=== PATIENT | female | born 1960 | race Caucasian/White ===

== ENCOUNTER 2020-02-08 15:30 | Outpatient (CLI) | payer BC, SELFPAY ==
--- NOTE | 2020-02-08 | XR_ITS ---
WS: [id number] SCREENING DEXA SCAN [employer] CLINICAL INFORMATION: POST MENOPAUSAL COMPARISON: None. FINDINGS: The L1-L4 bone mineral density measures 1.280 g/cm2. This corresponds to a T score score of 0.8 and Z score of 1.4. Left femoral neck bone mineral density measures 0.883 g/cm2. This corresponds to a T score of -1.0 an d Z score of -0.5. Right femoral neck bone mineral density measures 0.826 g/cm2. This corresponds to a T score -1.4of an d Z score of -1.0. Mean femoral neck bone mineral density measures 0.854 g/cm2. This corresponds to a T score of -1.2 an d Z score of -0.8. XR/XR DEXA axial skeleton* [id number] IMPRESSION: Osteopenia in the femoral necks. Patient's FRAX calculated 10 year probability for major osteoporotic fracture i s 15.0 % and osteoporotic hip fracture is 1.6%.
== END 2020-02-08 15:31 | disposition home or self-care (01) ==
LOC: RADWPI 15:38
PROVIDERS: Family Provider Physician Assistant; PCP Physician Assistant; Visit Provider Physician Assistant
DX: Z78.0 Asymptomatic menopausal state (principal); M85.89 Other specified disorders of bone density and structure, multiple sites
CPT/HCPCS: 77080

== ENCOUNTER → 2020-06-09 13:32 | Outpatient (BNVA) | payer BC, SELFPAY | PROVIDERS: Family Provider Physician Assistant; PCP Physician Assistant; Referring Provider Physician Assistant; Visit Provider Podiatrist Foot & Ankle Surgery | DX: M20.40 Other hammer toe(s) (acquired), unspecified foot (principal); M19.071 Primary osteoarthritis, right ankle and foot | CPT/HCPCS: 73630 ==

== ENCOUNTER 2020-06-22 09:41 | Outpatient (CLI) | payer BC, SELFPAY ==
--- NOTE | 2020-06-22 09:50 | MM_ITS ---
WS: [id number] Exam: [place] [id number] Date/Time of Exam: 06/22/2020 9:52 AM Reason For Exam: SCREENING VIEWS: MLO and CC views both breasts. No previous exam Findings: A 14 mm lobulated partially obscured nodule is seen in the upper outer quadrant of the left breast. T here is also a second nodule measuring about a centimeter in greatest diameter noted somewhat more po sterior and slightly superior to the first nodule. The second nodule is seen only on the MLO view. No suspicious calcification or associated architectural distortion. Scattered fibroglandular densities are noted. MM/[place] [id number] Impression: BI-RADS: 0-Incomplete: Need additional imaging evaluation FOLLOW-UP: Complete left breast ultrasound recommended for further workup. Comp ression spot imaging may also be necessary. This mammogram was also analyzed by the Computer Aided Detection System R2 Imag e [employer] Tutor.
== END 2020-06-22 09:42 | disposition home or self-care (01) ==
LOC: RADSHAW 09:45
PROVIDERS: Family Provider Physician Assistant; PCP Physician Assistant; Visit Provider Physician Assistant
DX: Z12.31 Encounter for screening mammogram for malignant neoplasm of breast (principal); N63.21 Unspecified lump in the left breast, upper outer quadrant
CPT/HCPCS: 77067

== ENCOUNTER 2020-08-08 13:54 | Outpatient (CLI) | payer BC, SELFPAY ==
--- NOTE | 2020-08-08 14:00 | MM_ITS ---
WS: [id number] ADDITIONAL VIEWS LEFT MAMMOGRAM LEFT BREAST ULTRASOUND HISTORY: Abnormal Mammo. 14mm lobular nodule upper outer LT breast COMPARISON: 06/22/2020. LEFT MAMMOGRAM: Spot compression views and true ML. Reniform shape masses in the upper outer quadrant of the LEFT breast. Largest measures 13 mm. These c orrespond to the findings on the screening mammogram. LEFT BREAST ULTRASOUND 2-D and color Doppler imaging submitted. Ultrasound directed to the upper-outer quadrant of the LEFT breast. Along the 2:00 axis there is karla form shaped hypoechoic mass identified. The largest 5 cm from the nipple measures 1.0 x 0.4 x 1.3 cm. There is an additional hypoechoic mass at 2:00, 2 cm from the nipple and at 12:00, 2 cm from the nip ple. MM/[place] [id number] IMPRESSION: BI-RADS: 4-Suspicious Finding-Biopsy Should Be Considered FOLLOW UP: Biopsy Recommended Ultrasound-guided biopsy recommended of 3 masses within the LEFT breast. The la rger mass may be a lymph node. Smaller mass at 2:00, 2 cm from the nipple and a t 12:00 2 cm from the nipple cannot be confirmed as lymph nodes. Recommend ultr asound-guided biopsy of all 3 nodules.
--- NOTE | 2020-08-08 14:15 | US_ITS ---
WS: [id number] ADDITIONAL VIEWS LEFT MAMMOGRAM LEFT BREAST ULTRASOUND HISTORY: Abnormal Mammo. 14mm lobular nodule upper outer LT breast COMPARISON: 06/22/2020. LEFT MAMMOGRAM: Spot compression views and true ML. Reniform shape masses in the upper outer quadrant of the LEFT breast. Largest measures 13 mm. These c orrespond to the findings on the screening mammogram. LEFT BREAST ULTRASOUND 2-D and color Doppler imaging submitted. Ultrasound directed to the upper-outer quadrant of the LEFT breast. Along the 2:00 axis there is karla form shaped hypoechoic mass identified. The largest 5 cm from the nipple measures 1.0 x 0.4 x 1.3 cm. There is an additional hypoechoic mass at 2:00, 2 cm from the nipple and at 12:00, 2 cm from the nip ple. US/US breast LT limited* [id number] IMPRESSION: BI-RADS: 4-Suspicious Finding-Biopsy Should Be Considered FOLLOW UP: Biopsy Recommended Ultrasound-guided biopsy recommended of 3 masses within the LEFT breast. The la rger mass may be a lymph node. Smaller mass at 2:00, 2 cm from the nipple and a t 12:00 2 cm from the nipple cannot be confirmed as lymph nodes. Recommend ultr asound-guided biopsy of all 3 nodules.
== END 2020-08-08 13:55 | disposition home or self-care (01) ==
LOC: RADSHAW 13:57
PROVIDERS: PCP Physician Assistant; Visit Provider Family Medicine
DX: N63.21 Unspecified lump in the left breast, upper outer quadrant (principal)
CPT/HCPCS: 76642; 77065

== ENCOUNTER 2020-08-22 12:01 | Outpatient (CLI) | payer BC, SELFPAY ==
--- NOTE | 2020-08-22 12:08 | US_ITS ---
WS: [id number] ULTRASOUND-GUIDED LEFT BREAST BIOPSY x 2 HISTORY: ABNORMAL MAMMO COMPARISON: 08/08/2020 Procedure, risks and complications are explained to the patient. Medications are reviewed. Consent is obtained. There are 2 masses in the LEFT breast which are localized with ultrasound. Skin is cleansed with Chlo raPrep and anesthetized with 1% buffered lidocaine. Small dermatome is made. Under sterile conditions mass is biopsied with a 14-gauge Achieve needle. Multiple core biopsies are performed. Material plac ed in formalin and sent to pathology for review. No complications encountered. Breast tissue marker (Bard ultrasound enhanced ribbon): Biopsy at 2:00, 2 cm from the nipple clip is a titanium biopsy marker bicycle are. This is a linear marker. Biopsy at 2:00, 5 cm from the nipple c lip is at the clip by Bard which is ribbon-shaped. There was an additional nodule initially described at 12:00 which is not evident today. Therefore, no biopsy of the 12:00 area. Patient left the radiology suite with no complications. Patient is instructed to return to [facility] or [facility] with any concerns. US/[place] [id number] IMPRESSION: 1. Uncomplicated core needle biopsy LEFT breast 2:00, 2 cm from the nipple. 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 RECOMMENDATION: Diagnostic LEFT mammogram 6 months. 2. Uncomplicated core needle biopsy LEFT breast 5:00, 2 cm from the nipple. 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 RECOMMENDATION: Diagnostic LEFT mammogram 6 months.
== END 2020-08-22 12:02 | disposition home or self-care (01) ==
PROVIDERS: PCP Physician Assistant; Visit Provider Physician Assistant
DX: R92.8 Other abnormal and inconclusive findings on diagnostic imaging of breast (principal); D24.2 Benign neoplasm of left breast
CPT/HCPCS: 19083; 19084; 87635; 88305

== ENCOUNTER 2020-08-26 05:42 | Day surgery (SDC) | payer BC, SELFPAY ==
[2020-08-25 13:27] VITALS: BMI 28.3
--- NOTE | 2020-08-26 | SCC_ITS ---
Procedure Done: Hammertoe Correction right third toe CPT code 91409 Hammertoe correction right fourth toe CPT code 07320 3 seconds of fluoroscopic guidance, for a cumulative dose of 0.045 mGy, was provided to Dr. Phan by the radiology department. C-arm images of the RIGHT foot were saved for the patient's permanent record. [facility]
[2020-08-26 05:59] VITALS: BP 159/108; PULSE 94; RESP 18; TEMP 36.8; O2SAT 97
[2020-08-26] MEDS: sodium chloride 0.9% 1,000 ML 30 ML IV (06:16)
--- NOTE | 2020-08-26 06:50 | ANES.PREANE2 ---
Pre-Anesthetic Assessment Pre-Anesthetic Assessment: Height/Weight: Height 1.78 m Weight 89.358 kg Temp Pulse Resp BP Pulse Ox 98.2 F 94 18 159/108 97 08/26/20 05:59 08/26/20 05:59 08/26/20 05:59 08/26/20 05:59 08/26/20 05:59 Preop Diagnosis: Hammertoe right third and fourth Proposed Procedure: Operation Date: 08/26/20 07:00 Proposed Procedures p Right third and fourth Hammertoe Correction [id number] M20.40(Right) - Alpesh Phan DPM Familial anesthetic complications: None Was Beta Berkley taken within 24 hours: N/A Last intake: Intake Last Liquid Date 08/25/20 Last Liquid Time 21:00 Last Solid Date 08/25/20 Last Solid Time 19:00 Social: Social History: No alcohol and No tobacco Exam: Pre-Anes Outpt Exam: alert, oriented x 3, clear to auscultation bilaterally and regular rate & rhythm Airway: Cervical ROM: WNL MP: 2 Dentition: Full CV/HEM: CV/HEM: HTN GI: GI: GERD Anesthetic Plan: ASA status: 1 Anesthesia: MAC Risk of > 500 ml blood loss (7ml/kg in children): No PFSH Anesthesia PFSH: Medical History Depression GERD (gastroesophageal reflux disease) Hypertension Social History Smoking and tobacco status: former smoker Marital status: Current occupational status: employed Data Anesthesia Cardiac Studies: No Data to Display
[2020-08-26] MEDS: lidocaine 1% INJ 20 mL INTRAVESIC (07:28)
--- NOTE | 2020-08-26 08:12 | XR_ITS ---
WS: [id number] Right foot, 3 views, 08/26/2020 Clinical Data: post op Comparison: Right foot, 06/09/2020. Findings: The patient has surgical implants in the right third and fourth PIP joints. 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 There is a plantar spur and a small Achilles spur. XR/XR foot RT min 3V* [id number] Impression: Surgical implants into the right third and fourth PIP joints of the foot.
--- NOTE | 2020-08-26 08:12 | P.OP_ITS ---
Operative Report Date of procedure: August 26, 2020 Pre-op Diagnosis: Hammertoe right third and fourth Post-op diagnosis: same Post-op Findings: Hammertoe contracture right third and fourth toe Procedure Done: Hammertoe Correction right third toe CPT code 81923 Hammertoe correction right fourth toe CPT code 04247 Implants: 3-0 Vicryl, 4-0 Vicryl, 4-0 nylon, hammer tube 2.75 straight x2 Specimens removed/disposition: None Pathology: none sent Surgeon: Alpesh Phan D.P.M. Director Physical: Gisel Anesthesia: MAC Estimated blood loss: Less than 5 mL Tourniquet time: 43 minutes IV fluids: None Urine output: None Complications: None Findings: None Condition: stable Disposition: PACU Brief History: Patient is a pleasant 60-year-old female who has had progressive pain at her right fourth and third hammertoe contractures a continual knuckle up and rubbing her shoe gear. She has tried more accommodative shoes with accommodating fabric and materials as well as higher toe box, padding, splinting and gel sleeves without relief at this time. She leads a very active lifestyle and would like to have the hammertoes corrected. Risks include pain, bleeding, numbness, infection, hardware failure, delayed union, malunion, nonunion, painful retained hardware, chronic swelling, dactylitis, hypersensitivity, surgical site dehiscence, need for further surgical intervention. Patient interviewed preoperatively, informed consent signed, marked patient's right foot with initials. No guarantees written, expressed or implied. Patient wishes to proceed. Procedure: Under mild sedation the patient was brought to the operating room and placed on the operating table in supine position. A timeout was performed. A nesthesia was administered by the anesthesia service. Local anesthesia injected by myself consisting of 25 cc of one-to-one mixture 1% lidocaine and 0.5% Marcaine plain and a right third and fourth ray block. Well-padded pneumatic tourniquet applied to the right ankle. Right lower extremity was then scrubbed, prepped and draped utilizing normal aseptic technique. Right foot was then examined a weighted with an Esmarch bandage and the tourniquet inflated to 250 mmHg. Attention was directed to the dorsum of the right third and fourth toes where 2 semielliptical converging incisions were made with #15 blade over the dorsal aspect of the proximal interphalangeal joint with the skin bridge being excised and passed from operative field both at the third and fourth toes. I performed a proximal extension of the skin incision at the third toe to the dorsum of the metatarsophalangeal joint. The extensor tendon of the third and fourth toe were transected at the level of the proximal interphalangeal joint and dissected proximally and held temporarily with a mosquito hemostat. The head of the proximal phalanx of the right third and fourth toes as well as base of the intermediate phalanx were denuded of articular surface perpendicular to the longitudinal axis this was then flushed with saline solution. Next utilizing language path technique a 2.275 hammer tube was inserted into the head of the third and fourth proximal phalanx this was 0 degree implant and the base of the intermediate phalanx of the third and fourth toe impacted with excellent bony apposition and compression noted. This was confirmed with direct visualization as well as intraoperative fluoroscopy in AP and lateral views. Attention was then directed to the right third metatarsophalangeal joint where a medial capsulotomy was performed and a lateral capsular augmentation was performed with 3-0 Vicryl to help further correct the transverse plane deformity of the right third toe this was improved. Incision sites were flushed with copious amounts of sterile sensation. The extensor tendons at the third and fourth toes of the right foot were reapproximated utilizing 4-0 Vicryl and skin closed utilizing 4- 0 nylon. Incision sites were dressed with Adaptic, sterile 4 x 4, Jossue, skin tape and Hung wrap. A cam boot was applied to the right lower extremity. At this time tourniquet was deflated and a prompt hyperemic response was noted to the distal digits of the right third and fourth toes. Patient tolerated the procedure well and was transferred to the PACU with vital signs stable and vascular status intact. Following a period of postoperative monitoring she will be discharged home. Was provided a prescription for [place] 10/325 to be taken every 6 hours as needed for pain she is to elevate her right foot while at rest. May be weightbearing limited with a cam boot at all times.
[2020-08-26 08:17] VITALS: BP 159/80; PULSE 78; RESP 18; TEMP 36.8; O2SAT 94
[2020-08-26 08:29] VITALS: BP 168/79; PULSE 73; RESP 18; TEMP 36.7; O2SAT 94
--- NOTE | 2020-08-26 14:39 | ANE.PACU2 ---
Inpatient post-anesthesia follow up: Vital signs: Temperature 98.1 F Pulse Rate 73 Respiratory Rate 18 Blood Pressure 168/79 Pulse Oximetry 94 Oxygen Delivery Me thod Room Air Oxygen Flow Rate Fraction of Inspir ed Oxygen Hydration adequate: Yes Nausea and vomiting: No Pain level: 1 Mental status: Baseline
--- NOTE | 2020-08-29 21:44 | W.PM.OPSUD ---
Surgery/Procedure H&P Update DATE OF PROCEDURE: August 26, 2020 DATE H&P PERFORMED: 08/22/20 H&P UPDATE INFORMATION: I have reviewed H&P completed within last 30 days, I have examined patient prior to procedure, No changes to prior documentation and H&P is in [facility] EMR on date indicated PREOP DIAGNOSIS: Hammertoe right third and fourth PLANNED PROCEDURE: Operation Date: 08/26/20 07:00 Proposed Procedures p Right third and fourth Hammertoe Correction [id number] M20.40(Right) - Alpesh Phan DPM
== END 2020-08-26 08:44 | disposition home or self-care (01) ==
PROVIDERS: PCP Physician Assistant; Visit Provider Podiatrist Foot & Ankle Surgery
PROC: (CPT 28285; principal; 2020-08-26 07:00)
DX: M20.41 Other hammer toe(s) (acquired), right foot (principal); I10 Essential (primary) hypertension; K21.9 Gastro-esophageal reflux disease without esophagitis; F32.9 Major depressive disorder, single episode, unspecified; Z87.891 Personal history of nicotine dependence
CPT/HCPCS: 28285 ×2; 12345; 73630; 76000; 96365; C1713; J0690; J2250; J2405; J2704; J3010; J3490; J7030

== ENCOUNTER → 2020-09-07 09:27 | Outpatient (BNVA) | payer BC, SELFPAY | PROVIDERS: PCP Physician Assistant; Visit Provider Podiatrist Foot & Ankle Surgery | DX: Z47.89 Encounter for other orthopedic aftercare (principal); M20.40 Other hammer toe(s) (acquired), unspecified foot; M79.671 Pain in right foot | CPT/HCPCS: 73630 ==

== ENCOUNTER → 2020-10-05 10:22 | Outpatient (BNVA) | payer BC, SELFPAY | PROVIDERS: PCP Physician Assistant; Visit Provider Podiatrist Foot & Ankle Surgery | DX: Z98.890 Other specified postprocedural states (principal) | CPT/HCPCS: 73630 ==

== ENCOUNTER 2021-02-07 14:59 | Outpatient (CLI) | payer SELFPAY ==
--- NOTE | 2021-02-07 15:03 | MM_ITS ---
WS: [id number] DIAGNOSTIC LEFT DIGITAL MAMMOGRAM WITH CAD LEFT breast ultrasound, limited HISTORY: LEFT BREAST MASS COMPARISON: 08/08/2020 and 06/22/2020 Technique: CC, MLO and ML views. Breast composition: There are scattered areas of fibroglandular density. Biopsy clip is noted in the LEFT breast mass near 2:00. No increase in size. There is an additional ovoid mass measuring 7 mm wh ich is unchanged towards the LEFT axillary tail. LEFT breast ultrasound, limited. 12:00, 2 cm from the nipple hypoechoic mass measures 7 x 4 x 7 mm and unchanged. 2:00, 2 cm from nipple hypoechoic mass measures 3 x 3 x 4 mm. Margins are slightly lobulated but no c hange. 2:00, 5 cm from the nipple hypoechoic mass measures 9 x 3.9 mm and probably a lymph node, no change. MM/[place] [id number] IMPRESSION: BI-RADS: 3-Probably Benign FOLLOW UP: 6 Month Follow-up Annual mammogram should be performed in June 2021. LEFT breast nodules can be reevaluated at that time for continued long-term stability.
--- NOTE | 2021-02-07 15:27 | US_ITS ---
WS: [id number] DIAGNOSTIC LEFT DIGITAL MAMMOGRAM WITH CAD LEFT breast ultrasound, limited HISTORY: LEFT BREAST MASS COMPARISON: 08/08/2020 and 06/22/2020 Technique: CC, MLO and ML views. Breast composition: There are scattered areas of fibroglandular density. Biopsy clip is noted in the LEFT breast mass near 2:00. No increase in size. There is an additional ovoid mass measuring 7 mm wh ich is unchanged towards the LEFT axillary tail. LEFT breast ultrasound, limited. 12:00, 2 cm from the nipple hypoechoic mass measures 7 x 4 x 7 mm and unchanged. 2:00, 2 cm from nipple hypoechoic mass measures 3 x 3 x 4 mm. Margins are slightly lobulated but no c hange. 2:00, 5 cm from the nipple hypoechoic mass measures 9 x 3.9 mm and probably a lymph node, no change. US/US breast LT limited* [id number] IMPRESSION: BI-RADS: 3-Probably Benign FOLLOW UP: 6 Month Follow-up Annual mammogram should be performed in June 2021. LEFT breast nodules can be reevaluated at that time for continued long-term stability.
== END 2021-02-07 15:00 | disposition home or self-care (01) ==
LOC: RADSHAW 15:03
PROVIDERS: PCP Physician Assistant; Visit Provider Physician Assistant
DX: N63.25 Unspecified lump in the left breast, overlapping quadrants (principal); N63.21 Unspecified lump in the left breast, upper outer quadrant
CPT/HCPCS: 76642; 77065

== ENCOUNTER 2021-05-31 14:05 | Outpatient (CLI) | payer OTHER, SELFPAY ==
[2021-05-31 14:25] VITALS: BP 156/111; PULSE 71; RESP 18; TEMP 37.2; O2SAT 95; BMI 28.3
[2021-05-31 15:22] VITALS: BP 160/87; PULSE 61; RESP 18; TEMP 36.6; O2SAT 97
[2021-05-31 16:07] VITALS: BP 161/105; PULSE 63; RESP 18; TEMP 36.6; O2SAT 91
== END 2021-05-31 14:06 | disposition home or self-care (01) ==
LOC: OPS 14:12
PROVIDERS: PCP Physician Assistant; Visit Provider Nurse Practitioner Family
DX: U07.1 COVID-19 (principal)
CPT/HCPCS: 96365

== ENCOUNTER 2022-06-19 11:43 | Outpatient (CLI) | payer BC, SELFPAY ==
--- NOTE | 2022-06-19 11:47 | MM_ITS ---
WS: [id number] BILATERAL SCREENING DIGITAL TOMOSYNTHESIS MAMMOGRAM WITH CAD HISTORY: screen COMPARISON: 08/08/2020 and 06/22/2020 Bilateral CC and MLO views with tomosynthesis and synthetic mammography submitted. Computer aided det ection analyzed. Breast composition: There are scattered areas of fibroglandular density. No suspicious masses, microc alcifications or architectural distortion. Stable nodules in the LEFT breast. MM/[place] [id number] IMPRESSION: BI-RADS: 2-Benign FOLLOW UP: 1 Year Follow-up
== END 2022-06-19 11:44 | disposition home or self-care (01) ==
PROVIDERS: PCP Physician Assistant; Visit Provider Physician Assistant
DX: Z12.31 Encounter for screening mammogram for malignant neoplasm of breast (principal)
CPT/HCPCS: 77063; 77067

== ENCOUNTER 2023-07-05 09:29 | Outpatient (CLI) | payer BC, SELFPAY ==
--- NOTE | 2023-07-05 09:41 | MM_ITS ---
WS: [id number] Bilateral screening 3D tomosynthesis digital mammogram, 07/05/2023 Clinical Data: SCREENING Comparison: 06/19/2022, 02/07/2021, 08/08/2020, 06/22/2020. Findings: The breast parenchymal pattern shows fibroglandular tissue. No spiculated masses or clustered calcifi cations are seen. There are no secondary signs of carcinoma. There is a biopsy clip in the left breas t. Impression: 1. Negative bilateral mammogram unchanged. 2. Recommend annual screening mammograms. MM/[place] [id number] BIRADS: 1-Negative FOLLOW UP: 1 Year Follow-up The CAD construction checker was used.
== END 2023-07-05 09:30 | disposition home or self-care (01) ==
LOC: RAD 09:30
PROVIDERS: PCP Physician Assistant; Visit Provider Physician Assistant
DX: Z12.31 Encounter for screening mammogram for malignant neoplasm of breast (principal)
CPT/HCPCS: 77063; 77067

== ENCOUNTER 2023-11-05 12:35 | Outpatient (CLI) | payer BC, SELFPAY ==
--- NOTE | 2023-11-05 12:40 | CT_ITS ---
WS: [id number] CT HEAD TECHNIQUE: Noncontrast CT of the head obtained from the skullbase to the vertex. CLINICAL INFORMATION: CONCUSSION WITH LOSS OF CONSCIOUSNESS COMPARISON: None. DLP: 1041.[address] scans at [facility] use at least one of these dose optimization techniques: automated e xposure control; mA and/or kV adjustment per patient size (includes targeted exams where dose is matc hed to clinical indication); or iterative reconstruction. FINDINGS: No evidence of intracranial hemorrhage or mass effect. Ventricular system and basal cisterns are obrien nt. Mild small vessel changes with mild parenchymal volume loss. No extra-axial fluid collections. No evidence of mass or mass effect. Mild cavernous carotid calcification. Paranasal sinuses and mastoid air cells are well aerated. .Normal visualized soft tissues. IMPRESSION: 1. No evidence of intracranial hemorrhage or mass effect. 2. No acute intracranial findings.
== END 2023-11-05 12:36 | disposition home or self-care (01) ==
LOC: RAD 12:36
PROVIDERS: PCP Physician Assistant; Visit Provider Physician Assistant
DX: S06.0X9A Concussion with loss of consciousness of unspecified duration, initial encounter (principal)
CPT/HCPCS: 70450

== ENCOUNTER → 2024-03-01 10:48 | Outpatient (BNVA) | payer BC, SELFPAY | PROVIDERS: PCP Physician Assistant; Visit Provider Emergency Medicine | DX: S52.552A Other extraarticular fracture of lower end of left radius, initial encounter for closed fracture (principal); W19.XXXA Unspecified fall, initial encounter | CPT/HCPCS: 73110; 73130 ==

== ENCOUNTER 2024-04-17 12:49 | Outpatient (CLI) | payer BC, SELFPAY ==
--- NOTE | 2024-04-17 12:54 | XR_ITS ---
WS: [id number] SCREENING DEXA SCAN [employer] CLINICAL INFORMATION: POSTMENOPAUSAL COMPARISON: 2019 FINDINGS: The L1-L4 bone mineral density measures 1.24. This corresponds to a T score score of 0.5 and Z score of 1.3. Left femoral neck bone mineral density measures 0.844. This corresponds to a T score of -1.3 and Z sc ore of -0.7. Right femoral neck bone mineral density measures 0.815. This corresponds to a T score of -1.5 of and Z score of -0.9. Mean femoral neck bone mineral density measures 0.83. This corresponds to a T score of -1.4 and Z sco re of -0.8. XR/XR DEXA axial skeleton* [id number] IMPRESSION: Normal bone mineralization lumbar spine. Osteopenia femoral necks. Patient's FRAX calculated 10 year probability for major osteoporotic fracture i s 15.2% and osteoporotic hip fracture is 1.8%. Bone mineral density lumbar spine decreased -18.8% Bone mineral density femoral necks decreased -2.7%
== END 2024-04-17 12:50 | disposition home or self-care (01) ==
LOC: RAD 12:50
PROVIDERS: PCP Physician Assistant; Visit Provider Physician Assistant
DX: Z13.820 Encounter for screening for osteoporosis (principal); M85.89 Other specified disorders of bone density and structure, multiple sites
CPT/HCPCS: 77080

== ENCOUNTER 2025-01-07 12:45 | Outpatient (CLI) | payer MEDICARE, BC, SELFPAY ==
--- NOTE | 2025-01-07 12:55 | MM_ITS ---
WS: [id number] BILATERAL SCREENING DIGITAL TOMOSYNTHESIS MAMMOGRAM WITH CAD HISTORY: SCREENING COMPARISON: 07/05/2023, 06/19/2022 and 02/07/2021 Bilateral CC and MLO views with tomosynthesis and synthetic mammography submitted. Computer aided detection analyzed. Breast composition: There are scattered areas of fibroglandular density. No suspicious masses, microcalcifications or architectural distortion. Benign calcifications in each breast. Mass upper outer quadrant LEFT breast at middle depth contains a biopsy clip. There is an additional biopsy clip in the anterior LEFT breast. Focal asymmetry in the posterior LEFT upper outer quadrant is stable over multiple years. MM/MM scr BI tomosynthesis [id number] IMPRESSION: BI-RADS: 2 - Benign. FOLLOW UP: 1 Year Follow-up
== END 2025-01-07 12:46 | disposition home or self-care (01) ==
LOC: RAD 12:53
PROVIDERS: PCP Physician Assistant; Visit Provider Physician Assistant
DX: Z12.31 Encounter for screening mammogram for malignant neoplasm of breast (principal); R92.323 Mammographic fibroglandular density, bilateral breasts; R92.1 Mammographic calcification found on diagnostic imaging of breast; N64.89 Other specified disorders of breast
CPT/HCPCS: 77063; 77067